=== PATIENT | female | born 1965 | race Caucasian/White ===

== ENCOUNTER → 2021-12-14 | Outpatient (CLI) | payer BC ==
--- NOTE | 2021-12-14 12:34 | CT ---
EXAMINATION TYPE: CT abdomen pelvis w con DATE OF EXAM: 12/14/2021 COMPARISON: None HISTORY: Right sided abdominal and flank pain. CT DLP: 640.2 mGycm CONTRAST: CT scan of the abdomen and pelvis is performed with Oral Contrast and with IV Contrast, patient injec riya with 100ml mL of Isovue 300. FINDINGS: LUNG BASES-: No visible nodule. No infiltrate. Thickening of the distal esophagus may reflect esopha gitis. Correlate clinically and consider direct visualization if felt clinically indicated to exclude malignancy. LIVER/GB: The gallbladder is surgically absent. No space occupying hepatic lesion. Biliary tree is of normal caliber. PANCREAS: No inflammation. No distinct mass. SPLEEN: No splenic enlargement. No lesion seen. ADRENALS: No nodule. No thickening. KIDNEYS/BLADDER: No hydronephrosis. No nephrolithiasis. No distinct renal mass. Urinary bladder g rossly unremarkable. BOWEL: Normal appendix. Normal bowel caliber. No inflammation. There is moderate fecal stasis noted throughout the colon. GENITAL ORGANS: Hysterectomy changes identified. LYMPH NODES: No greater than 1cm abdominal or pelvic lymph nodes are appreciated. AORTA: No significant abnormality. OSSEOUS STRUCTURES: No significant abnormality is seen. OTHER: No significant additional abnormality is seen. IMPRESSION: 1. Thickening of the distal esophagus may reflect esophagitis. Correlate clinically and consider dire ct visualization if felt clinically indicated to exclude malignancy.
== END | disposition home or self-care (01) ==
LOC: RADCTMAIN 10:10
PROVIDERS: ATTEND Family Medicine
DX: K63.0 Abscess of intestine (principal)
CPT/HCPCS: 74177; Q9967

== ENCOUNTER 2022-01-25 08:38 | Day surgery (SDC) | payer BC ==
[~2022-01-25 08:38] MED LIST: LACTATED RINGERS 1,000 ML IV SCH
[2022-01-25 09:15] VITALS: TEMP 97.4
[2022-01-25] MEDS ORDERED: LIDOCAINE 1% INJ 10MG/ML (20 ML MDV) ONE (09:58)
[2022-01-25] MEDS ORDERED: PROPOFOL 10 MG/ML 20 ML VIAL IV ONE (09:58)
--- NOTE | 2022-01-25 10:16 | P.PCN ---
Date of Procedure: 01/25/22 Procedure(s) Performed: BRIEF HISTORY: Patient is a 56-year-old, pleasant, white female scheduled for an upper endoscopy as a part of evaluation of GERD, intermittent nausea vomiting and epigastric pain for the last 4-5 weeks duration. He was recently started on Protonix 40 mg twice daily.. PROCEDURE PERFORMED: Esophagogastroduodenoscopy with biopsy. PREOPERATIVE DIAGNOSIS:. Epigastric pain/intermittent nausea vomiting and history of GERD. IV sedation per anesthesia. PROCEDURE: After informed consent was obtained, the patient was brought into the endoscopy unit. IV sedation was administered by Anesthesia under continuous monitoring. Initially the Olympus GIF-140 video endoscope was inserted into the mouth. Esophagus intubated without any difficulty. It was gradually advanced into the stomach and duodenum and carefully examined. The bulb and the second part of the duodenum appeared normal. The scope at this time was withdrawn to the stomach, adequately insufflated with air, and upon careful examination, mucosa of the antrum, had mild gastritis and biopsies were done from this area. Scattered erosions identified. The body, cardia and the fundus appeared normal. The scope was then withdrawn into the esophagus. The GE junction was located at 39 cm from the incisors. The rest of the esophagus appeared normal. There were no erosions or ulcerations seen and the pThe small sliding type hiatal hernia noted. There was some circumferential erythema the GE junction consistent with LA grade a reflux esophagitis. atient tolerated the procedure well. IMPRESSION: 1. Scattered erosions in the antrum status post biopsy. 2. Circumferential erythema the GE junction consistent with LA grade a reflux esophagitis and small hiatal hernia RECOMMENDATIONS: The findings of this examination were discussed with the patient as well as her family. She was advised to continue with Protonix 40 mg twice daily and follow antireflux measures. In the meantime she will follow with the biopsy results and she'll be seen in the office in.
[2022-01-25 10:51] VITALS: BP 110/69; PULSE 54; RESP 16
== END 2022-01-25 11:18 ==
LOC: ORWHC2ENDO 08:38
PROVIDERS: ATTEND Internal Medicine Gastroenterology
DX: K21.9 Gastro-esophageal reflux disease without esophagitis (principal); K29.50 Unspecified chronic gastritis without bleeding; K44.9 Diaphragmatic hernia without obstruction or gangrene; Z87.891 Personal history of nicotine dependence; Z79.899 Other long term (current) drug therapy
CPT/HCPCS: 88305; 88342; 43239; J2001; J2704

== ENCOUNTER → 2022-07-26 | Outpatient (CLI) | payer BC ==
--- NOTE | 2022-07-29 10:19 | MM ---
Reason for Exam: Screening (asymptomatic). Last mammogram was performed 3 year(s) and 5 month(s) ago. Patient History: 2016, Ultrasound-Guided Core Biopsy on the Left side. Maternal aunt had breast cancer at or over age 50. Cousin had breast cancer at or over age 50. Cousin had breast cancer under age 50. Maternal aunt had breast cancer. Maternal aunt had breast cancer. Mother had breast cancer. Risk Values: Yovana 5 year model risk: 2.6%. NCI Lifetime model risk: 15.2%. Prior Study Comparison: 03/10/2019 Bilateral MG screening mammo w CAD - 2, Unknown. Tissue Density: The breast tissue is heterogeneously dense. This may lower the sensitivity of mammography. Findings: Analyzed By CAD. Mammotome biopsy clip left breast upper aspect. There is no suspicious new group of microcalcifications or new suspicious mass in either breast. Overall Assessment: Benign, BI-RAD 2 Management: Screening Mammogram of both breasts in 1 year. A clinical breast exam by your physician is recommended on an annual basis and results should be correlated with mammographic findings. Electronically signed and approved by: Claude Stephens M.D.
== END | disposition home or self-care (01) ==
LOC: RADMAMWWP 15:50
PROVIDERS: ATTEND Family Medicine
DX: Z12.31 Encounter for screening mammogram for malignant neoplasm of breast (principal); Z80.3 Family history of malignant neoplasm of breast
CPT/HCPCS: 77063; 77067

== ENCOUNTER → 2023-09-08 | Outpatient (CLI) | payer BC ==
--- NOTE | 2023-09-09 19:19 | MM ---
Reason for Exam: Screening (asymptomatic). Last mammogram was performed 1 year(s) and 1 month(s) ago. Patient History: Menarche at age 12. First Full-Term at age 25. Hysterectomy at age 50. Postmenopausal. 2016, Ultrasound-Guided Core Biopsy on the Left side. Maternal aunt had breast cancer at or over age 50. Cousin had breast cancer at or over age 50. Cousin had breast cancer under age 50. Maternal aunt had breast cancer. Maternal aunt had breast cancer. Maternal cousin had breast cancer under age 50. Mother had breast cancer. Risk Values: Yovana 5 year model risk: 3.2%. NCI Lifetime model risk: 16.6%. Prior Study Comparison: 03/10/2019 Bilateral MG screening mammo w CAD - 2, Unknown. 07/26/2022 Bilateral MG 3D screening mammo w/cad, [facility]. Tissue Density: There are scattered fibroglandular densities. Findings: Analyzed By CAD. Pattern appears symmetrical and stable. No significant interval change is evident. No suspicious groups of microcalcifications, spiculated or lobular masses, architectural distortion or other secondary signs of malignancy are mammographically apparent. Overall Assessment: Benign, BI-RAD 2 Management: Screening Mammogram of both breasts in 1 year. A negative mammogram report should not preclude additional follow up of suspicious palpable abnormalities. Patient should continue monthly self breast exam. A clinical breast exam by your physician is recommended on an annual basis and results should be correlated with mammographic findings. Electronically signed and approved by: Prasahnt Santizo D.O. Radiologis
== END | disposition home or self-care (01) ==
LOC: RADMAMWWP 16:22
PROVIDERS: ATTEND Family Medicine
DX: Z12.31 Encounter for screening mammogram for malignant neoplasm of breast (principal); Z80.3 Family history of malignant neoplasm of breast; Z78.0 Asymptomatic menopausal state
CPT/HCPCS: 77063; 77067

== ENCOUNTER → 2023-11-08 | Outpatient (CLI) | payer BC ==
[2023-11-08 23:18] LABS: Magnesium 2.1 mg/dL (1.5-2.4)
== END | disposition home or self-care (01) ==
LOC: LABWHC1 11:09
PROVIDERS: ATTEND Psychiatry & Neurology Neurology
DX: K86.81 Exocrine pancreatic insufficiency (principal)
CPT/HCPCS: 36415; 82310; 82525; 82607; 83735; 84207; 84425; 84446; 84590; 84630

== ENCOUNTER → 2023-11-08 | Outpatient (CLI) | payer BC ==
--- NOTE | 2023-11-08 11:12 | MR ---
EXAMINATION TYPE: MR brain wo/w con DATE OF EXAM: 11/08/2023 COMPARISON: None HISTORY: Myoclonus, dizziness. CONTRAST: Performed utilizing 7 mL intravenous Gadavist gadolinium contrast. TECHNIQUE: Multiplanar, multiecho imaging on a 3.0 Eloisa magnet is performed through the brain. Stud y is performed within 24 hours of arrival to the hospital. The craniovertebral junction is normal. The pituitary is normal. Diffusion-weighted imaging is performed. No abnormal hyperintensity is present to suggest an acute i ntracranial infarct or acute ischemic change. Signal within the brain is unremarkable. Following contrast, no abnormal enhancement is evident. Ventricles and sulci are appropriate for the patient age. IMPRESSION: 1. Unremarkable pre and postcontrast MRI brain.
== END | disposition home or self-care (01) ==
LOC: RADMRIMAIN 10:05
PROVIDERS: ATTEND Psychiatry & Neurology Neurology
DX: G25.3 Myoclonus (principal)
CPT/HCPCS: 70553; A9585

== ENCOUNTER → 2023-11-24 | Outpatient (CLI) | payer BC ==
[2023-11-24 11:21] LABS: BUN/Creat Ratio 28.43 Ratio (12.00-20.00); Blood Urea Nitrogen 19.9 mg/dL (9.0-27.0); Calcium 9.5 mg/dL (8.7-10.3); Chloride 106 mmol/L (96-109); Glucose 93 mg/dL (70-110); Potassium 4.7 mmol/L (3.5-5.5); Sodium 142 mmol/L (135-145); T4, Free (Free Thyroxine) 1.08 ng/dL (0.80-1.80)
== END | disposition home or self-care (01) ==
LOC: LABWHC1 08:08
PROVIDERS: ATTEND Psychiatry & Neurology Neurology
DX: G25.3 Myoclonus (principal); R73.9 Hyperglycemia, unspecified
CPT/HCPCS: 36415; 80048; 83036; 84439; 84443; 84481; 86376

== ENCOUNTER → 2023-12-05 | Outpatient (CLI) | payer BC ==
--- NOTE | 2023-12-06 16:00 | MR ---
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 MR contrast: IV Contrast: 7 cc Gadavist, None. FINDINGS: Motion limited exam of the cervical spine. CERVICAL: Alignment: The cervical vertebral bodies have preserved heights. Alignment is within normal limits gi casimiro patient positioning. Bones: Scattered Modic endplate changes with osteophytes and disc space narrowing. Multilevel degener ative disc disease is noted and most pronounced at the C5-C7 vertebral levels. Cord: The spinal cord is unremarkable with regards to their signal intensity and morphology. Discs: Multilevel disc desiccation is present. C2-C3: No significant disc pathology. The spinal canal is patent. No neural foraminal stenosis. C3-C4: No significant disc pathology. The spinal canal is patent. Bilateral facet and uncovertebral joint arthropathy are present with mild to moderate right and mild left neural foraminal stenosis. C4-C5: A disc osteophyte complex is present with mild spinal canal stenosis. Bilateral facet and unc overtebral joint arthropathy are present with moderate right and mild left neural foraminal stenosis. C5-C6: A disc osteophyte complex is present with mild spinal canal stenosis. Bilateral facet and unc overtebral joint arthropathy are present with moderate bilateral neural foraminal stenosis. C6-C7: A disc osteophyte complex is present with mild spinal canal stenosis. Bilateral facet and unc overtebral joint arthropathy are present with moderate left and mild right neural foraminal stenosis. C7-T1: No significant disc pathology. The spinal canal is patent. No neural foraminal stenosis. THORACIC: No evidence significant spinal canal or neural foraminal stenosis. Spinal cord is within no rmal limits Other: None. IMPRESSION: 1. Motion limited exam. No evidence for significant spinal canal stenosis. Scattered degeneration wi th varying degrees of neural foraminal stenosis most pronounced in the cervical spine. 2. Disc degeneration changes worse in the cervical spine at C5-C6 and C6-C7 with at least mild spina l canal stenosis. Neural foraminal stenosis also worse in the cervical spine from C4 to C7. 3. No definitive evidence of disc herniation .
== END | disposition home or self-care (01) ==
LOC: RADMRIMAIN 16:20
PROVIDERS: ATTEND Psychiatry & Neurology Neurology
DX: M50.322 Other cervical disc degeneration at C5-C6 level (principal); M48.02 Spinal stenosis, cervical region; M99.71 Connective tissue and disc stenosis of intervertebral foramina of cervical region; M50.323 Other cervical disc degeneration at C6-C7 level; G25.3 Myoclonus; C72.0 Malignant neoplasm of spinal cord; R51.9 Headache, unspecified; R56.9 Unspecified convulsions
CPT/HCPCS: 72156; 72157; A9585

== ENCOUNTER → 2023-12-27 | Outpatient (CLI) | payer BC ==
[2023-12-28 07:28] LABS: Amylase 28 U/L (23-121); Lipase 20 U/L (14-63)
== END | disposition home or self-care (01) ==
LOC: LABWHC1 10:00
PROVIDERS: ATTEND Psychiatry & Neurology Neurology
DX: G25.3 Myoclonus (principal); K92.9 Disease of digestive system, unspecified; G93.39 Other post infection and related fatigue syndromes; G25.9 Extrapyramidal and movement disorder, unspecified
CPT/HCPCS: 36415; 82150; 83690; 86618; 86780; 86788; 86789

== ENCOUNTER 2024-06-22 09:03 | Day surgery (SDC) | payer BC ==
[~2024-06-22 09:03] MED LIST changes: -LACTATED RINGERS 1,000 ML IV SCH; +LIDOCAINE 1% (10MG/ML) FOR IV START INTRADERMA PRN
[2024-06-22 09:42] VITALS: TEMP 97.6
[2024-06-22] MEDS: LACTATED RINGERS 1,000 ML IV SCH (09:52)
[2024-06-22] MEDS: IV FLUID CONTINUATION 1,000 ML IV ONE (09:52)
[2024-06-22] MEDS ORDERED: PROPOFOL 10 MG/ML 20 ML VIAL IV ONE (10:00)
[2024-06-22] MEDS ORDERED: LIDOCAINE 1% INJ 10MG/ML (20 ML MDV) ONE (10:00)
--- NOTE | 2024-06-22 10:05 | P.GSHP ---
History of Present Illness H&P Date: 06/22/24 Chief Complaint: Colon cancer screening 58-year-old female here for colonoscopy. Has had some chronic bowel issues. Nothing currently. Patient has a history of colon polyps. Last colonoscopy 5 years ago. No family history of colon cancer. Patient does have a strong fam dulce maria history of breast cancer. 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 breast biopsy, D & C x 5 Past Anesthesia/Blood Transfusion Reactions: No Reported Reaction Smoking Status: Former smoker - Past Family History Father Family Medical History: Congestive Heart Failure (CHF) Mother Family Medical History: Cancer, Diabetes Mellitus Medications and Allergies Home Medications Medication Instructions Recorded Confirmed Type Aspirin/Acetaminophen/Caffeine 1 tab PO Q6H PRN 06/15/24 06/22/24 History [Excedrin Migraine Caplet] clonazePAM 0.25 mg PO DAILY PRN 06/15/24 06/22/24 History Allergies Allergy/AdvReac Type Severity Reaction Status Date / Time Sulfa (Sulfonamide Allergy Rash/Hives Verified 06/22/24 09:44 Antibiotics) adhesive AdvReac Rash/Hives Verified 06/22/24 09:44 Surgical - Exam Vital Signs Temp Pulse Resp BP Pulse Ox 97.6 F 75 18 108/74 100 06/22/24 09:40 06/22/24 09:40 06/22/24 09:40 06/22/24 09:40 06/22/24 09:40 Physical exam: General: Well-developed, well-nourished HEENT: Normocephalic, sclerae nonicteric Abdomen: Nontender, nondistended Extremities: No edema Neuro: Alert and oriented Assessment and Plan (1) Colon cancer screening Narrative/Plan: Will proceed with colonoscopy at this time. Current Visit: Yes Status: Acute Code(s): Z12.11 - ENCOUNTER FOR SCREENING FOR MALIGNANT NEOPLASM OF COLON SNOMED Code(s): 001891305
--- NOTE | 2024-06-22 10:16 | P.PCN ---
Date of Procedure: 06/22/24 Procedure(s) Performed: PREOPERATIVE DIAGNOSIS: Colon cancer screening with history of polyps POSTOPERATIVE DIAGNOSIS: Mild diverticulosis PROCEDURE: Colonoscopy ANESTHESIA: MAC SURGEON: Farhat Ballard M.D. SPECIMENS: None ENDOSCOPIC PROCEDURE: The patient was placed on the endoscopy table in the left decubitus position. The Olympus colonoscope was inserted into the anus and passed under direct visualization to the base of the cecum. The appendiceal orifice was visualized. From that point the scope was slowly withdrawn inspecting all surfaces carefully. There were no neoplastic inflammatory or polypoid lesions throughout the cecum, ascending, transverse, descending, sigmoid and rectum. There was mild scattered diverticulosis noted. Digital rectal examination was normal. The patient was taken to the recovery room in stable condition per anesthesia guidelines. RECOMMENDATIONS: Resume diet. Repeat colonoscopy 5 to 7 years.
[2024-06-22 10:27] VITALS: PULSE 63; RESP 12
[2024-06-22 10:38] VITALS: BP 95/63
== END 2024-06-22 11:00 | disposition home or self-care (01) ==
LOC: ORWHC2ENDO 09:03
PROVIDERS: ATTEND Surgery
DX: Z12.11 Encounter for screening for malignant neoplasm of colon (principal); G40.909 Epilepsy, unspecified, not intractable, without status epilepticus; K21.9 Gastro-esophageal reflux disease without esophagitis; K57.30 Diverticulosis of large intestine without perforation or abscess without bleeding; Z87.891 Personal history of nicotine dependence; Z88.1 Allergy status to other antibiotic agents; Z88.2 Allergy status to sulfonamides; Z90.49 Acquired absence of other specified parts of digestive tract; Z90.710 Acquired absence of both cervix and uterus; Z80.3 Family history of malignant neoplasm of breast
CPT/HCPCS: 45378